=== PATIENT | female | born 1965 ===

== ENCOUNTER 2018-11-21 08:26 | Inpatient (IN) | payer OTHER ==
[2018-11-21] MEDS ORDERED: Sodium Chloride 0.9% 1,000 ML IV ONE ×2 (09:00)
[2018-11-21] MEDS ORDERED: Sodium Chloride 0.9% 1,000 ML ONE (09:12)
[2018-11-21] MEDS ORDERED: Morphine 4 MG/ML VIAL ONE (09:13)
[2018-11-21 09:43] LABS: BASO % 0.3 % (0.0-2.0); HEMOGLOBIN 13.8 g/dL (11.0-16.0); LYMPH # 1.8 K/uL (1.0-4.3); LYMPH % 15.1 % (20.0-40.0); MEAN CELL VOLUME 87.6 fL (81.0-99.0); MEAN CORPUSCULAR HGB CONC 34.3 g/dL (33.0-37.0); MEAN PLATELET VOLUME 8.9 fL (7.2-11.7); MONO # 0.3 K/uL (0.0-0.8); MONO % 2.8 % (0.0-10.0); NEUT # 9.7 K/uL (1.8-7.0); NEUT % 81.8 % (50.0-75.0); RBC 4.59 Mil/uL (3.80-5.20); RED CELL DISTRIBUTION WIDTH 13.1 % (11.5-14.5); WHITE BLOOD COUNT 11.9 K/uL (4.8-10.8)
[2018-11-21 09:54] LABS: ALB/GLOB RATIO 1.3 (1.0-2.1); ALBUMIN 4.6 g/dL (3.5-5.0); ALT/SGPT 110 U/L (9-52); AST/SGOT 158 U/L (14-36); BLOOD UREA NITROGEN 11 mg/dL (7-17); CALCIUM 9.1 mg/dl (8.6-10.4); GFR NON-AFRICAN AMERICAN > 60; LIPASE 64 U/L (23-300); SQUAMOUS EPITHIAL < 1 /hpf (0-5); URINE BACTERIA RARE (<OCC); URINE BILIRUBIN NEGATIVE (NEGATIVE); URINE BLOOD NEGATIVE (NEGATIVE); URINE CLARITY Clear (Clear); URINE COLOR Yellow (YELLOW); URINE GLUCOSE (UA) NORMAL (Normal); URINE LEUKOCYTE ESTERASE NEG Leu/uL (Negative); URINE PROTEIN NEGATIVE (NEGATIVE); URINE UROBILINOGEN NORMAL mg/dL (0.2-1.0)
--- NOTE | 2018-11-21 10:02 | C.PDOC ---
History Of Present Illness 52 year old female with a history of gastritis presents to the emergency department with complaints of abdominal pain across the anterior abdomen. Patient states that the pain feels like her gastritis but worse. Patient also reports multiple bouts of vomiting since the pain started. Patient denies fever, chills, headache, chest pain, and shortness of breath. Time Seen by Provider: 11/21/18 08:51 Chief Complaint (Nursing): Abdominal Pain History Per: Patient History/Exam Limitations: no limitations Onset/Duration Of Symptoms: Days (1) Current Symptoms Are (Timing): Still Present Location Of Pain/Discomfort: Diffuse (anterior abdomen) Quality Of Discomfort: "Pain" Associated Symptoms: Vomiting. denies: Fever, Chills, Nausea, Chest Pain, Other (headache, shortness of breath) Past Medical History Reviewed: Historical Data, Nursing Documentation, Vital Signs Vital Signs: Last Vital Signs Temp 97.5 F L 11/21/18 08:32 Pulse 72 11/21/18 08:32 Resp 22 11/21/18 08:32 BP 110/73 11/21/18 08:32 Pulse Ox 100 11/21/18 08:32 Primary Care Provider: FAMILY PROVIDER,NO - Medical History PMH: Gastritis Surgical History: No Surg Hx Family History: States: No Known Family Hx - Social History Hx Alcohol Use: No Hx Substance Use: No - Immunization History Hx Tetanus Toxoid Vaccination: No Hx Influenza Vaccination: No Hx Pneumococcal Vaccination: No Review Of Systems Except As Marked, All Systems Reviewed And Found Negative. Constitutional: Negative for: Fever, Chills, Weakness Cardiovascular: Negative for: Chest Pain Respiratory: Negative for: Shortness of Breath Gastrointestinal: Positive for: Vomiting, Abdominal Pain Neurological: Negative for: Headache Physical Exam - Physical Exam Appears: Non-toxic, In Acute Distress (writhing in pain, moaning, holding abdomen, afebrile) Skin: Normal Color, Warm, Dry Head: Atraumatic, Normacephalic Eye(s): bilateral: Normal Inspection Oral Mucosa: Moist Neck: Normal, Supple Chest: Symmetrical, No Tenderness Cardiovascular: Rhythm Regular, No Murmur Respiratory: No Rales, No Rhonchi, No Wheezing Gastrointestinal/Abdominal: Soft, No Tenderness, No Guarding, No Rebound Extremity: Normal ROM Neurological/Psych: Oriented x3, Normal Speech, Normal Cognition ED Course And Treatment - Laboratory Results Result Diagrams: 11/21/18 09:36 11/21/18 09:36 Lab Results: Total Bilirubin 0.6 mg/dL (0.2-1.3) 11/21/18 09:36 AST 158 U/L (14-36) H 11/21/18 09:36 ALT 110 U/L (9-52) H 11/21/18 09:36 Alkaline Phosphatase 111 U/L (38-126) 11/21/18 09:36 Total Protein 8.0 g/dL (6.3-8.3) 11/21/18 09:36 Albumin 4.6 g/dL (3.5-5.0) 11/21/18 09:36 Globulin 3.4 gm/dL (2.2-3.9) 11/21/18 09:36 Albumin/Globulin Ratio 1.3 (1.0-2.1) 11/21/18 09:36 Lipase 64 U/L (23-300) 11/21/18 09:36 Urine Color Yellow (YELLOW) 11/21/18 09:36 Urine Clarity Clear (Clear) 11/21/18 09:36 Urine pH 6.0 (5.0-8.0) 11/21/18 09:36 Ur Specific [place] 1.016 (1.003-1.030) 11/21/18 09:36 Urine Protein Negative mg/dL (NEGATIVE) 11/21/18 09:36 Urine Glucose (UA) Normal mg/dL (Normal) 11/21/18 09:36 Urine Ketones Negative mg/dL (NEGATIVE) 11/21/18 09:36 Urine Blood Negative (NEGATIVE) 11/21/18 09:36 Urine Nitrate Negative (NEGATIVE) 11/21/18 09:36 Urine Bilirubin Negative (NEGATIVE) 11/21/18 09:36 Urine Urobilinogen Normal mg/dL (0.2-1.0) 11/21/18 09:36 Ur Leukocyte Esterase Neg [place]/uL (Negative) 11/21/18 09:36 Urine WBC (Auto) < 1 /hpf (0-5) 11/21/18 09:36 Urine RBC (Auto) < 1 /hpf (0-3) 11/21/18 09:36 Ur Squamous Epith Cells < 1 /hpf (0-5) 11/21/18 09:36 Urine Bacteria Rare (<OCC) 11/21/18 09:36 O2 Sat by Pulse Oximetry: 100 (RA) Pulse Ox Interpretation: Normal - Other Rad XR Abdomen Flat Plate X-Ray: Interpreted by Me, Viewed By Me Interpretation: Moderate stool in the colon. Progress Note: Plan: Chemistry. CBC. Morphine. Pepcid. NaCl IV Fluids. Zofran. XR Abdomen Flat Plate. Urinalysis Medical Decision Making Medical Decision Making: After evaluation by surgical team, requested patient be sent to medical service because she has not had a medical evaluation in a long period of time, as well as other findings on CT scan. Disposition Discussed With Dr.: Alexis Giordano Counseled Patient/Family Regarding: Studies Performed, Diagnosis - Disposition Disposition: HOSPITALIZED Disposition Time: 14:59 Condition: GUARDED - Clinical Impression Clinical Impression: Abdominal pain, Acute cholecystitis - Scribe Statement The provider has reviewed the documentation as recorded by the Scribe (Román Espinozavi) Provider Attestation: All medical record entries made by the Scribe were at my direction and personally dictated by me. I have reviewed the chart and agree that the record accurately reflects my personal performance of the history, physical exam, medical decision making, and the department course for this patient. I have also personally directed, reviewed, and agree with the discharge instructions and disposition. Decision To Admit - Pt Status Changed To: Hospital Disposition Of: Inpatient - Admit Certification Admit to Inpatient:: After my assessment, the patient will require hospitalization for at least two midnights. This is because of the severity of symptoms shown, intensity of services needed, and/or the medical risk in this patient being treated as an outpatient. - InPatient: Physician Admission Certification:: acute chuy with elevated LFTs and elevated WBC - . Bed Request Type: Regular Admitting Physician: Alexis Giordano Patient Diagnosis: Abdominal pain, Acute cholecystitis
--- NOTE | 2018-11-21 13:08 | RAD ---
Abdomen two views History: Abdominal pain. COMPARISON: None available. Findings: Moderate to severe fecal retention in the colon. Distended loops of small bowel in the left lower abdomen. Impression: Moderate to severe fecal retention in the colon. Distended loops of small bowel in the left lower abdomen.
--- NOTE | 2018-11-21 14:17 | US ---
Right upper quadrant abdominal ultrasound HISTORY: Right upper quadrant abdominal pain. Comparison: None available. Technique: Real-time sonography was performed through the right upper quadrant of the abdomen. Findings: Liver: Enlarged measuring 18.1 centimeters in length. Increased echogenicity of the hepatic parenchymal cortex suggestive for fatty infiltration versus hepatic parenchymal disease. Clinical correlation. Within the liver, there is a 2.4 x 1.5 x 2.1 centimeter hypoechoic foci near the gallbladder fossa which may represent focal fatty sparing. Underlying lesion can't be excluded. Correlation with multiphasic CT or MRImay be helpful for further evaluation if clinically indicated. Gallbladder: Cholelithiasis with mild gallbladder wall thickening measuring up to 3.4 millimeters. Associated gallbladder wall edema and pericholecystic fluid. These findings may represent an acute cholecystitis. Negative sonographic Paz's sign. Common bile duct measures 5.7 millimeters, mildly prominent. Limited visualization of the pancreas. Visualized aorta and IVC are preserved. Right kidney: 10.1 x 4.2 x 4.8 centimeters. No calculi or hydronephrosis. Lower pole hypoechoic cyst measuring 1.4 x 1 x 1.1 centimeters with a suggestion of a peripheral echogenic calcification. Impression: 1. Cholelithiasis with mild gallbladder wall thickening measuring up to 3.4 millimeters as well as associated gallbladder wall edema and pericholecystic fluid. These findings may represent an acute cholecystitis. Clinical correlation. Negative sonographic Paz's sign. 2. Hepatomegaly with increased echogenicity of the hepatic parenchymal cortex suggestive for fatty infiltration versus hepatic parenchymal disease. Clinical correlation. 3. Within the liver, there is a 2.4 x 1.5 x 2.1 centimeter hypoechoic foci near the gallbladder fossa which may represent focal fatty sparing. Underlying lesion can't be excluded. Correlation with multiphasic CT or MRImay be helpful for further evaluation if clinically indicated. 4. Mild prominence of the common bile duct measuring up to 5.7 millimeters. 5. Limited visualization of the pancreas. 6. 1.4 centimeter right renal cyst with suggestion of peripheral echogenic calcification.
[2018-11-21] MEDS ORDERED: Piperacillin/Tazobact 3.375 GM in Sodium Chloride 100 ML IVPB STA (15:01)
[2018-11-21] MEDS ORDERED: Piperacillin/Tazobact 3.375 gm 100 ML IVPB ONE (15:30)
[2018-11-21] MEDS ORDERED: HYDROmorphone 0.5 mg/0.5 ml ISec IVP PRN (15:34)
--- NOTE | 2018-11-21 16:01 | CP.PCM.HP ---
History of Present Illness - History of Present Illness History of Present Illness: PGY3 H&P for Hospitalist Service Patient is a 52 year old female, with PMHx of gastritis, presents to the ED c/o abdominal pain. Reports that pain began around midnight last night while she was trying to go to sleep. Describes pain as "sharp, stabbing" in nature, located in epigastric/RUQ region. Rates pain as "10/10 in severity." Pain associated with "11 episodes" of non-bloody, non-bilious vomiting last night. Patient does not remember if it is worse with food or not. She states she has had this pain in the past, approximately the past year, but never this bad before. Each time the pain eventually resolves "on its own." Patient denies subjective fever, chills, headache, chest pain, shortness of breath, dysuria, co nstipation, diarrhea, or blood in stool. PMD: none PMH: Gastritis, Headaches (does not take medication) PSHx: denies ALL: NKDA SocialHx: denies tobacco, etoh, recreational drug use FH: sister had cholecystectomy Present on Admission - Present on Admission Any Indicators Present on Admission: No Review of Systems - Constitutional Constitutional: absent: Chills, Fever - EENT Eyes: absent: Change in Vision Nose/Mouth/Throat: absent: Neck Mass - Cardiovascular Cardiovascular: absent: Chest Pain, Dyspnea - Gastrointestinal Gastrointestinal: Abdominal Pain, Nausea, Vomiting. absent: Constipation, Diarrhea, Hematemesis - Genitourinary Genitourinary: absent: Dysuria - Musculoskeletal Musculoskeletal: absent: Numbness, Tingling - Integumentary Integumentary: absent: Swelling, Wounds - Neurological Neurological: absent: Tingling, Weakness - Psychiatric Psychiatric: absent: Anxiety, Depression - Endocrine Endocrine: absent: Change in Libido, Fatigue, Palpitations Past Patient History - Past Social History Smoking Status: Never Smoked - GASTROINTESTINAL Hx Gastritis: Yes - PSYCHIATRIC Hx Substance Use: No - SURGICAL HISTORY Hx Surgeries: No Meds Allergies/Adverse Reactions: Allergies Allergy/AdvReac Type Severity Reaction Status Date / Time No Known Allergies Allergy Unverified 11/21/18 08:36 Physical Exam - Constitutional Appears: Non-toxic, In Acute Distress (writhing on stretcher) - Head Exam Head Exam: ATRAUMATIC, NORMAL INSPECTION - Eye Exam Eye Exam: EOMI, PERRL - ENT Exam ENT Exam: Mucous Membranes Moist - Respiratory Exam Respiratory Exam: Clear to Auscultation Bilateral, NORMAL BREATHING PATTERN. absent: Rhonchi, Wheezes - Cardiovascular Exam Cardiovascular Exam: REGULAR RHYTHM, +S1, +S2 - GI/Abdominal Exam GI & Abdominal Exam: Guarding (voluntary), Normal Bowel Sounds, Soft, Tenderness (RUQ/epiogastric). absent: Distended, Rigid Additional comments: negative smith, rovsing - Extremities Exam Extremities exam: Positive for: normal inspection. Negative for: pedal edema, tenderness - Back Exam Back exam: absent: CVA tenderness (L), CVA tenderness (R) - Neurological Exam Neurological exam: Alert, Oriented x3 - Psychiatric Exam Psychiatric exam: Normal Affect, Normal Mood - Skin Skin Exam: Normal Color, Warm Results - Vital Signs Recent Vital Signs: Last Vital Signs Temp 99.9 F H 11/21/18 14:51 Pulse 74 11/21/18 12:07 Resp 18 11/21/18 12:07 BP 116/64 11/21/18 12:07 Pulse Ox 100 11/21/18 15:56 - Labs Result Diagrams: 11/21/18 09:36 11/21/18 09:36 Labs: Laboratory Results - last 24 hr 11/21/18 11/21/18 11/21/18 09:36 09:36 09:36 WBC 11.9 H RBC 4.59 Hgb 13.8 Hct 40.2 MCV 87.6 MCH 30.0 MCHC 34.3 RDW 13.1 Plt Count 284 MPV 8.9 Neut % (Auto) 81.8 H Lymph % (Auto) 15.1 L [place] % (Auto) 2.8 Eos % (Auto) 0.0 Baso % (Auto) 0.3 Neut # (Auto) 9.7 H Lymph # (Auto) 1.8 [place] # (Auto) 0.3 Eos # (Auto) 0.0 Baso # (Auto) 0.0 Sodium 134 Potassium 3.8 Chloride 98 Carbon Dioxide 21 L Anion Gap 19 BUN 11 Creatinine 0.5 L Est GFR ( Amer) > 60 Est GFR (Non-Af Amer) > 60 Random Glucose 124 H Calcium 9.1 Total Bilirubin 0.6 AST 158 H ALT 110 H Alkaline Phosphatase 111 Total Protein 8.0 Albumin 4.6 Globulin 3.4 Albumin/Globulin Ratio 1.3 Lipase 64 Urine Color Yellow Urine Clarity Clear Urine pH 6.0 Ur Specific [place] 1.016 Urine Protein Negative Urine Glucose (UA) Normal Urine Ketones Negative Urine Blood Negative Urine Nitrate Negative Urine Bilirubin Negative Urine Urobilinogen Normal Ur Leukocyte Esterase Neg Urine WBC (Auto) < 1 Urine RBC (Auto) < 1 Ur Squamous Epith Cells < 1 Urine Bacteria Rare Assessment & Plan - Assessment and Plan (Free Text) Plan: Acute Cholecystitis Admit to med/surg NPO diet Febrile 100.8, WBC elevated (11.9) w left shift; no tachypnea ABD US (11/21/18): Cholelithiasis w mild GB wall thickening measuring up to 3.4 mm, as well as GB edema and pericholecystic fluid. Negative sono smith sign. Hepatomegaly with increased echogenicity of hepatic parenchymal disease vs fatty infiltration. Within liver, 2.4 x 1.5 x 2.1 cm hypoechoic foci near GB fossa which may represent focal fatty sparing - underlying lesion cannot be excluded. Mild prominence of CBD (up to 5.7 mm). 1.4 cm of right renal cyst. Lipase 64 UA WNL Surgical consult: Dr Hemanth Giordano - NPO for cholecystectomy Zosyn 3.375gm IV Q6H (start 11/21/18; Day 1) Dilaudid 0.5mg IV Q4H for severe pain Protonix 40mg IV Daily Motrin 400mg ONCE for fever NS @ 100cc/hr f/u Lactate Focal Liver lesion vs fatty sparing Seen on CT above f/u Liver multi-phase CT Hepatic Parenchymal disease vs Fatty liver As seen on CT above Transaminitis AST / ALT 156 /110 on admission Alk phos 111 Renal Cyst Seen on US above Will need opdx f/u in 6 months to see if stable size PPX Hold chemical VTE for possible procedure Protonix 40mg IV Daily SCD Disposition: Patient narrowly misses SIRS criteria - check VBG shock for lactate; NPO for possible cholecystectomy D/w attending, Dr Kirsten Mccall PGY3
--- NOTE | 2018-11-21 16:08 | CP.PCM.CON ---
<Laron Amaro - Last Filed: 11/21/18 18:20> History of Present Illness - History of Present Illness History of Present Illness: Surgery Consult Note- Dr. Giordano Reason for Consult: Acute Cholecystitis 52F pmhx significant for Gastritis, currently does not take any medications at home presents to [facility] ER w/ multiple episodes of nausea and bilious, non-bloody vomiting over the last day. Patient states currently having sharp, stabbing, mid-epigastric to RUQ abdominal pain that woke her up late last night. Pain worse during intervals throughout the day unable to confirm any aggravating factors, including food. Patient had similar pain in the past however self limiting and resolves spontaneously. Denies associated fevers, chills, chest pain, shortness of breath. Last time patient saw a doctor was 4 years ago. Denies having colonoscopy 12 pt ROS conducted, negative otherwise stated above PMH: Gastritis, Headaches (does not take medication) PSH: denies ALL: NKDA SocialHx: denies tobacco, etoh, recreational drug use FH: sister had cholecystectomy Past Patient History - Past Social History Smoking Status: Never Smoked - GASTROINTESTINAL Hx Gastritis: Yes - PSYCHIATRIC Hx Substance Use: No - SURGICAL HISTORY Hx Surgeries: No Meds Allergies/Adverse Reactions: Allergies Allergy/AdvReac Type Severity Reaction Status Date / Time No Known Allergies Allergy Unverified 11/21/18 08:36 - Medications Medications: Current Medications Hydromorphone HCl (Dilaudid) 0.5 mg IVP Q4H PRN PRN Reason: Pain, severe (8-10) Sodium Chloride (Sodium Chloride 0.9%) 1,000 mls @ 100 mls/hr IV .Q10H ONE Stop: 11/21/18 18:59 Last Admin: 11/21/18 09:10 Dose: 100 mls/hr Piperacillin Sod/Tazobactam (Sod 3.375 gm/ Sodium Chloride) 100 mls @ 200 mls/hr IVPB Q6H REN; Protocol Ondansetron HCl (Zofran Inj) 4 mg IVP Q4H PRN PRN Reason: Nausea/Vomiting Pantoprazole Sodium (Protonix Inj) 40 mg IVP DAILY REN Physical Exam - Constitutional Appears: Non-toxic, No Acute Distress, Older Than Stated Age - Head Exam Head Exam: ATRAUMATIC - Eye Exam Eye Exam: EOMI. absent: Scleral icterus - ENT Exam ENT Exam: Mucous Membranes Moist - Respiratory Exam Respiratory Exam: NORMAL BREATHING PATTERN. absent: Accessory Muscle Use, Respiratory Distress - Cardiovascular Exam Cardiovascular Exam: REGULAR RHYTHM. absent: Bradycardia, Tachycardia - GI/Abdominal Exam GI & Abdominal Exam: Guarding (Voluntary guarding RUQ), Soft, Tenderness (Tender to palpation RUQ. Negative Paz's sign). absent: Distended, Firm, Hernia, Rebound, Rigid - Extremities Exam Extremities exam: Negative for: calf tenderness - Neurological Exam Neurological exam: Alert, Oriented x3 - Psychiatric Exam Psychiatric exam: Normal Affect - Skin Skin Exam: Intact, Warm Results - Vital Signs Recent Vital Signs: Last Vital Signs Temp 99 F 11/21/18 16:03 Pulse 79 11/21/18 16:03 Resp 18 11/21/18 16:03 BP 123/75 11/21/18 16:03 Pulse Ox 95 11/21/18 16:03 - Labs Result Diagrams: 11/21/18 09:36 11/21/18 09:36 Labs: Laboratory Results - last 24 hr 11/21/18 11/21/18 11/21/18 09:36 09:36 09:36 WBC 11.9 H RBC 4.59 Hgb 13.8 Hct 40.2 MCV 87.6 MCH 30.0 MCHC 34.3 RDW 13.1 Plt Count 284 MPV 8.9 Neut % (Auto) 81.8 H Lymph % (Auto) 15.1 L [place] % (Auto) 2.8 Eos % (Auto) 0.0 Baso % (Auto) 0.3 Neut # (Auto) 9.7 H Lymph # (Auto) 1.8 [place] # (Auto) 0.3 Eos # (Auto) 0.0 Baso # (Auto) 0.0 Sodium 134 Potassium 3.8 Chloride 98 Carbon Dioxide 21 L Anion Gap 19 BUN 11 Creatinine 0.5 L Est GFR ( Amer) > 60 Est GFR (Non-Af Amer) > 60 Random Glucose 124 H Calcium 9.1 Total Bilirubin 0.6 AST 158 H ALT 110 H Alkaline Phosphatase 111 Total Protein 8.0 Albumin 4.6 Globulin 3.4 Albumin/Globulin Ratio 1.3 Lipase 64 Urine Color Yellow Urine Clarity Clear Urine pH 6.0 Ur Specific [place] 1.016 Urine Protein Negative Urine Glucose (UA) Normal Urine Ketones Negative Urine Blood Negative Urine Nitrate Negative Urine Bilirubin Negative Urine Urobilinogen Normal Ur Leukocyte Esterase Neg Urine WBC (Auto) < 1 Urine RBC (Auto) < 1 Ur Squamous Epith Cells < 1 Urine Bacteria Rare Assessment & Plan - Assessment and Plan (Free Text) Assessment: 52F w/ Acute Cholecystitis, and liver mass found on Ultrasound Plan: - Pain control w/ IV pain meds, limiting narcotic use - IVF/Abx - NPO except for meds - Obtain [address] scan of the liver - pending results; plan for Cholecystectomy - repeat labs in AM - serial abd exams - explained in detail biliary system and parts for cholecystectomy - discussed w/ Dr. Giordano Surgical Attending [facility] PGY2 <Alexis Giordano - Last Filed: 11/22/18 08:22> Meds - Medications Medications: Current Medications Hydromorphone HCl (Dilaudid) 0.5 mg IVP Q4H PRN PRN Reason: Pain, severe (8-10) Last Admin: 11/21/18 18:15 Dose: 0.5 mg Piperacillin Sod/Tazobactam (Sod 3.375 gm/ Sodium Chloride) 100 mls @ 200 mls/hr IVPB Q6H REN; Protocol Last Admin: 11/22/18 08:13 Dose: Not Given Metronidazole (Flagyl) 500 mg in 100 mls @ 100 mls/hr IVPB Q8H REN; Protocol Last Admin: 11/22/18 04:59 Dose: 100 mls/hr Ondansetron HCl (Zofran Inj) 4 mg IVP Q4H PRN PRN Reason: Nausea/Vomiting Pantoprazole Sodium (Protonix Inj) 40 mg IVP DAILY [facility] Pneumococcal Polyvalent Vaccine (Pneumovax 23 Vaccine) 0.5 ml IM .ONCE ONE Stop: 11/24/18 10:01 Results - Vital Signs Recent Vital Signs: Last Vital Signs Temp 97 F L 11/22/18 00:06 Pulse 76 11/22/18 00:06 Resp 20 11/22/18 00:06 BP 104/66 11/22/18 00:06 Pulse Ox 98 11/22/18 00:06 - Labs Result Diagrams: 11/22/18 05:09 11/22/18 05:09 Labs: Laboratory Results - last 24 hr 11/21/18 11/21/1819 09:36 09:36 09:36 WBC 11.9 H RBC 4.59 Hgb 13.8 Hct 40.2 MCV 87.6 MCH 30.0 MCHC 34.3 RDW 13.1 Plt Count 284 MPV 8.9 Neut % (Auto) 81.8 H Lymph % (Auto) 15.1 L [place] % (Auto) 2.8 Eos % (Auto) 0.0 Baso % (Auto) 0.3 Neut # (Auto) 9.7 H Lymph # (Auto) 1.8 [place] # (Auto) 0.3 Eos # (Auto) 0.0 Baso # (Auto) 0.0 PT INR APTT pO2 VBG pH VBG pCO2 VBG HCO3 VBG Total CO2 VBG O2 Sat (Calc) VBG Base Excess VBG Potassium Glucose Lactate Sodium 134 Potassium 3.8 Chloride 98 Carbon Dioxide 21 L Anion Gap 19 BUN 11 Creatinine 0.5 L Est GFR ( Amer) > 60 Est GFR (Non-Af Amer) > 60 Random Glucose 124 H Lactic Acid Calcium 9.1 Phosphorus Magnesium Total Bilirubin 0.6 AST 158 H ALT 110 H Alkaline Phosphatase 111 Total Protein 8.0 Albumin 4.6 Globulin 3.4 Albumin/Globulin Ratio 1.3 Lipase 64 Venous Blood Potassium Urine Color Yellow Urine Clarity Clear Urine pH 6.0 Ur Specific [place] 1.016 Urine Protein Negative Urine Glucose (UA) Normal Urine Ketones Negative Urine Blood Negative Urine Nitrate Negative Urine Bilirubin Negative Urine Urobilinogen Normal Ur Leukocyte Esterase Neg Urine WBC (Auto) < 1 Urine RBC (Auto) < 1 Ur Squamous Epith Cells < 1 Urine Bacteria Rare Blood Type Antibody Screen 11/21/18 11/21/18 11/22/18 18:24 22:32 05:09 WBC 15.6 H RBC 4.34 Hgb 12.8 Hct 38.4 MCV 88.5 MCH 29.4 MCHC 33.2 RDW 13.7 Plt Count 258 MPV 8.4 Neut % (Auto) 83.0 H Lymph % (Auto) 10.6 L [place] % (Auto) 6.2 Eos % (Auto) 0.0 Baso % (Auto) 0.2 Neut # (Auto) 12.9 H Lymph # (Auto) 1.6 [place] # (Auto) 1.0 H Eos # (Auto) 0.0 Baso # (Auto) 0.0 PT INR APTT pO2 30 VBG pH 7.36 VBG pCO2 46 VBG HCO3 23.8 VBG Total CO2 27.4 VBG O2 Sat (Calc) 61.5 VBG Base Excess 0.1 VBG Potassium 3.9 Glucose 106 H Lactate 3.5 H Sodium 135.0 Potassium Chloride 100.0 Carbon Dioxide Anion Gap BUN Creatinine Est GFR ( Amer) Est GFR (Non-Af Amer) Random Glucose Lactic Acid 1.1 Calcium Phosphorus Magnesium Total Bilirubin AST ALT Alkaline Phosphatase Total Protein Albumin Globulin Albumin/Globulin Ratio Lipase Venous Blood Potassium 3.9 Urine Color Urine Clarity Urine pH Ur Specific [place] Urine Protein Urine Glucose (UA) Urine Ketones Urine Blood Urine Nitrate Urine Bilirubin Urine Urobilinogen Ur Leukocyte Esterase Urine WBC (Auto) Urine RBC (Auto) Ur Squamous Epith Cells Urine Bacteria Blood Type Antibody Screen 11/22/18 11/22/18 11/22/18 05:09 05:09 05:09 WBC RBC Hgb Hct MCV MCH MCHC RDW Plt Count MPV Neut % (Auto) Lymph % (Auto) [place] % (Auto) Eos % (Auto) Baso % (Auto) Neut # (Auto) Lymph # (Auto) [place] # (Auto) Eos # (Auto) Baso # (Auto) PT 14.9 H INR 1.4 APTT 32.6 pO2 VBG pH VBG pCO2 VBG HCO3 VBG Total CO2 VBG O2 Sat (Calc) VBG Base Excess VBG Potassium Glucose Lactate Sodium 135 Potassium 3.7 Chloride 103 Carbon Dioxide 25 Anion Gap 11 BUN 10 Creatinine 0.6 L Est GFR ( Amer) > 60 Est GFR (Non-Af Amer) > 60 Random Glucose 126 H Lactic Acid Calcium 8.3 L Phosphorus 3.1 Magnesium 1.8 Total Bilirubin 1.1 AST 34 ALT 63 H D Alkaline Phosphatase 89 Total Protein 6.6 Albumin 3.7 Globulin 2.9 Albumin/Globulin Ratio 1.3 Lipase Venous Blood Potassium Urine Color Urine Clarity Urine pH Ur Specific [place] Urine Protein Urine Glucose (UA) Urine Ketones Urine Blood Urine Nitrate Urine Bilirubin Urine Urobilinogen Ur Leukocyte Esterase Urine WBC (Auto) Urine RBC (Auto) Ur Squamous Epith Cells Urine Bacteria Blood Type O POSITIVE Antibody Screen Negative Assessment & Plan - Assessment and Plan (Free Text) Plan: Patient seen and examined at bedside with residetn staff. Imaging and reports reviewed. Agree with above assessment and plan. 52 female acute cholecystitis confirmed on US and CT imaging. Plan for laparoscopic cholecystectomy. Risks and benefits discussed with patient using product trainer services, including bleeding, infection, bile leak and bile duct injury. All questions answered. Consent signed at bedside.
[2018-11-21] MEDS ORDERED: Iodixanol 320 MG/ML 100 ML BOTTLE IV ONE (16:30)
--- NOTE | 2018-11-21 16:39 | RAD ---
Chest x-ray two views HISTORY: Preoperative evaluation. Comparison: None available. Findings: Mild venous congestion. Right paratracheal prominence may represent prominent vasculature. Heart size within normal limits. Degenerative changes in the spine. Impression: Mild venous congestion.
[2018-11-21 18:30] LABS: VENOUS BLOOD GAS BASE EXCESS 0.1 mmol/L (0.0-2.0); VENOUS BLOOD GAS PCO2 46 mmHg (40-60); VENOUS BLOOD GAS PO2 30 mm/Hg (30-55); VENOUS BLOOD PH 7.36 (7.32-7.43)
[2018-11-21] MEDS: metroNIDAZOLE IV 500 mg/100 ml 500 MG/100 ML BAG IVPB SCH (19:47)
[2018-11-21] MEDS: Piperacillin/Tazobact 3.375 GM in Sodium Chloride 100 ML IVPB SCH (21:47)
[2018-11-22] MEDS: Piperacillin/Tazobact 3.375 GM in Sodium Chloride 100 ML IVPB SCH ×2 (03:38→08:13)
[2018-11-22] MEDS: metroNIDAZOLE IV 500 mg/100 ml 500 MG/100 ML BAG IVPB SCH ×4 (04:59→20:07)
[2018-11-22 05:13] LABS: BASO % 0.2 % (0.0-2.0); HEMOGLOBIN 12.8 g/dL (11.0-16.0); LYMPH # 1.6 K/uL (1.0-4.3); LYMPH % 10.6 % (20.0-40.0); MEAN CELL VOLUME 88.5 fL (81.0-99.0); MEAN CORPUSCULAR HEMOGLOBIN 29.4 pg (27.0-31.0); MEAN CORPUSCULAR HGB CONC 33.2 g/dL (33.0-37.0); MEAN PLATELET VOLUME 8.4 fL (7.2-11.7); MONO % 6.2 % (0.0-10.0); NEUT # 12.9 K/uL (1.8-7.0); RBC 4.34 Mil/uL (3.80-5.20); RED CELL DISTRIBUTION WIDTH 13.7 % (11.5-14.5); WHITE BLOOD COUNT 15.6 K/uL (4.8-10.8)
[2018-11-22 05:21] LABS: INR 1.4; PARTIAL THROMBOPLASTIN TIME 32.6 SECONDS (21-34); PROTHROMBIN TIME 14.9 SECONDS (9.7-12.2)
[2018-11-22 05:27] LABS: ALB/GLOB RATIO 1.3 (1.0-2.1); ALBUMIN 3.7 g/dL (3.5-5.0); ALT/SGPT 63 U/L (9-52); AST/SGOT 34 U/L (14-36); BLOOD UREA NITROGEN 10 mg/dL (7-17); CALCIUM 8.3 mg/dl (8.6-10.4); GFR NON-AFRICAN AMERICAN > 60
--- NOTE | 2018-11-22 08:07 | CP.PCM.PN ---
Subjective - Date & Time of Evaluation Date of Evaluation: 11/22/18 Time of Evaluation: 08:07 - Subjective Subjective: Progress Note for Dr. Daugherty Patient seen and examined at bedside. She states she is comfortable after her laparoscopic cholecystectomy. She denies fevers, chills, headache, lightheadedness, chest pain, shortness of breath, nausea, vomiting, urinary frequency or burning, leg pain or swelling. She states she takes no medications at home regularly. She states she is eager to eat, states she has not passed any flatus yet. Objective - Vital Signs/Intake and Output Vital Signs (last 24 hours): Temp Pulse Resp BP Pulse Ox 97 F L 76 20 104/66 98 11/22/18 00:06 11/22/18 00:06 11/22/18 00:06 11/22/18 00:06 11/22/18 00:06 Intake and Output: 11/22/18 11/22/18 06:59 18:59 Intake Total 930 Balance 930 - Medications Medications: Current Medications Hydromorphone HCl (Dilaudid) 0.5 mg IVP Q4H PRN PRN Reason: Pain, severe (8-10) Last Admin: 11/21/18 18:15 Dose: 0.5 mg Piperacillin Sod/Tazobactam (Sod 3.375 gm/ Sodium Chloride) 100 mls @ 200 mls/hr IVPB Q6H REN; Protocol Last Admin: 11/22/18 03:38 Dose: 200 mls/hr Metronidazole (Flagyl) 500 mg in 100 mls @ 100 mls/hr IVPB Q8H REN; Protocol Last Admin: 11/22/18 04:59 Dose: 100 mls/hr Ondansetron HCl (Zofran Inj) 4 mg IVP Q4H PRN PRN Reason: Nausea/Vomiting Pantoprazole Sodium (Protonix Inj) 40 mg IVP DAILY REN Pneumococcal Polyvalent Vaccine (Pneumovax 23 Vaccine) 0.5 ml IM .ONCE ONE Stop: 11/24/18 10:01 - Labs Labs: 11/22/18 05:09 11/22/18 05:09 PT 14.9 SECONDS (9.7-12.2) H 11/22/18 05:09 INR 1.4 11/22/18 05:09 APTT 32.6 SECONDS (21-34) 11/22/18 05:09 - Constitutional Appears: Well, Non-toxic, No Acute Distress - Head Exam Head Exam: ATRAUMATIC, NORMOCEPHALIC - Eye Exam Eye Exam: EOMI, PERRL - ENT Exam ENT Exam: Mucous Membranes Moist - Neck Exam Neck Exam: Full ROM - Respiratory Exam Respiratory Exam: Clear to Ausculation Bilateral, NORMAL BREATHING PATTERN. absent: Rales, Rhonchi, Wheezes, Respiratory Distress, Stridor - Cardiovascular Exam Cardiovascular Exam: REGULAR RHYTHM, +S1, +S2. absent: Gallop, Rubs, Murmur - GI/Abdominal Exam GI & Abdominal Exam: Soft, Hypoactive Bowel Sounds. absent: Guarding, Rigid, Tenderness Additional comments: 4 incision sites on abdomen covered with dermabond - Extremities Exam Extremities Exam: absent: Calf Tenderness, Pedal Edema - Back Exam Back Exam: absent: CVA tenderness (L), CVA tenderness (R) - Neurological Exam Neurological Exam: Alert, Awake, Oriented x3 - Psychiatric Exam Psychiatric exam: Normal Affect, Normal Mood - Skin Skin Exam: Dry, Intact, Warm Assessment and Plan - Assessment and Plan (Free Text) Assessment: 52 year old female who presents for abdominal pain, found to have cholecystitis, status post laparoscopic cholecystectomy day 0 Plan: Cholecystitis Status post lap cholecystectomy Patient underwent surgical intervention (lap cholecystectomy) today on 11/22/18 ABD US (11/21/18): Cholelithiasis w mild GB wall thickening measuring up to 3.4 mm, as well as GB edema and pericholecystic fluid. Negative sono smith sign. Hepatomegaly with increased echogenicity of hepatic parenchymal disease vs fatty infiltration. Within liver, 2.4 x 1.5 x 2.1 cm hypoechoic foci near GB fossa which may represent focal fatty sparing - underlying lesion cannot be excluded. Mild prominence of CBD (up to 5.7 mm). 1.4 cm of right renal cyst. Lipase 64 UA WNL White count 15.6, up from 11.9 yesterday Lactate VBG elevated 3.5, repeat serum lactate 1.1 Zosyn 3.375gm IV Q6H (start 11/21/18) Flagyl 500mg Q8 (start 11/21/18) Dilaudid 0.5mg IV Q4H for severe pain Protonix 40mg IV Daily LR @ 150cc/hr IV Zofran 4mg Q4 PRN Percocet 1 tab Q4 PRN Motrin 600mg Q6 PRN Focal Liver lesion vs fatty sparing Liver multi-phase CT 11/21/18 Hepatic steatosis with areas of focal fatty sparing. No discrete hepatic mass. Distended gallbladder with wall thickening/edema as seen on ultrasound. Left adnexal 6.9 cm cystic structure. Pelvic US can be obtained for further characterization as clinically warranted. Hepatic Parenchymal disease vs Fatty liver Liver CT Liver multi-phase CT 11/21/18 Hepatic steatosis with areas of focal fatty sparing. No discrete hepatic mass. Distended gallbladder with wall thickening/edema as seen on ultrasound. Left adnexal 6.9 cm cystic structure. Pelvic US can be obtained for further characterization as clinically warranted. Transaminitis, improving AST / ALT 156 /110 on admission - AST 34/ALT 63 today Alk phos 111 on admission, 89 today Renal Cyst Seen on US above Will need opdx f/u in 6 months to see if stable size Adnexal/pelvic cyst Follow up as outpatient PPX Heparin 5000 units SC Q8 Protonix 40mg IV Daily SCDs Case discussed with Dr. Willow De Los Santos, PGY1
[2018-11-22] MEDS ORDERED: Bupivacaine HCl 0.25% PF (10 ml) Inj ONE ×2 (08:23→08:24)
[2018-11-22] MEDS ORDERED: Lidocaine/Epinephrine 1% 1:100000 10 ML IJ ONE (08:23)
[2018-11-22] MEDS ORDERED: Propofol 10 mg/ml Inj (20 ML) ONE (08:31)
[2018-11-22] MEDS ORDERED: Midazolam 2 MG/2 ML VIAL ONE (08:31)
[2018-11-22] MEDS ORDERED: Piperacillin/Tazobact 3.375 gm 100 ML IVPB ONE (08:47)
[2018-11-22] MEDS ORDERED: Rocuronium 10 mg/ml (5 ml) ONE (09:06)
[2018-11-22] MEDS ORDERED: Phenylephrine 10 mg/ml Inj ONE (09:21)
[2018-11-22] MEDS ORDERED: Succinylcholine Chloride 20 mg/ml Syr (5 ml) IV ONE (09:22)
[2018-11-22] MEDS ORDERED: Esmolol 100 mg/10ml Inj IV ONE (09:27)
[2018-11-22] MEDS ORDERED: Neostigmine 1:1000 (1 mg/ml) Inj ONE (10:01)
[2018-11-22] MEDS ORDERED: HYDROmorphone 0.5 mg/0.5 ml ISec IVP PRN (10:38)
--- NOTE | 2018-11-22 10:40 | PCM.SURG1 ---
Surgeon's Initial Post Op Note - Surgeon's Notes Surgeon: Dr. Giordano Precision Jig Grinder: Dr. Rodriguez Type of Anesthesia: General Endo Anesthesia Administered By: Dr. Crum Pre-Operative Diagnosis: Acute cholecystitis Operative Findings: same Post-Operative Diagnosis: same Operation Performed: Laparoscopic Cholecystectomy Specimen/Specimens Removed: gallbladder Estimated Blood Loss: EBL {In ML}: 50 Blood Products Given: N/A Drains Used: No Drains Post-Op Condition: Good Date of Surgery/Procedure: 11/22/18 Time of Surgery/Procedure: 10:39
--- NOTE | 2018-11-22 10:47 | CT ---
Date of service: 11/21/2018 PROCEDURE: CT Abdomen and Pelvis with and without intravenous contrast HISTORY: Liver Lesion COMPARISON: Correlations made to abdominal ultrasound dated 11/21/2018 TECHNIQUE: Axial images of the abdomen were obtained in the pre contrast, portal venous and delayed phases of enhancement. Coronal and sagittal reformats were generated. Contrast dose: 100 mL Visipaque 320 Radiation dose: Total exam DLP = 3162.94 mGy-cm. This CT exam was performed using one or more of the following dose reduction techniques: Automated exposure control, adjustment of the mA and/or kV according to patient size, and/or use of iterative reconstruction technique. FINDINGS: LOWER THORAX: Unremarkable. LIVER: Diffuse hepatic steatosis with areas of focal fatty sparing. No gross lesion or ductal dilatation. GALLBLADDER AND BILE DUCTS: Distended gallbladder with mild wall thickening/edema as seen on ultrasound. PANCREAS: Unremarkable. No gross lesion or ductal dilatation. SPLEEN: Unremarkable. ADRENALS: Unremarkable. No mass. KIDNEYS AND URETERS: Unremarkable. No hydronephrosis. No solid mass. VASCULATURE: Unremarkable. No aortic aneurysm. No aortic atherosclerotic calcification or mural plaque present. BOWEL: Unremarkable. No obstruction. No gross mural thickening. APPENDIX: No findings to suggest acute appendicitis. PERITONEUM: Unremarkable. No free fluid. No free air. LYMPH NODES: Unremarkable. No enlarged lymph nodes. BLADDER: Unremarkable. REPRODUCTIVE: Left adnexal 6.9 x 5.9 cm cystic structure. Probable small calcified uterine fibroids. BONES: No acute fracture. OTHER FINDINGS: None. IMPRESSION: Hepatic steatosis with areas of focal fatty sparing. No discrete hepatic mass. Distended gallbladder with wall thickening/edema as seen on ultrasound. Left adnexal 6.9 cm cystic structure. Pelvic ultrasound can be obtained for further characterization as clinically warranted.
[2018-11-22] MEDS ORDERED: Oxycodone/Acetaminophen 5/325 mg Tab PO PRN (11:30)
[2018-11-22] MEDS ORDERED: Lactated Ringer's 1,000 ML IV ONE (11:56)
[2018-11-22] MEDS: Lactated Ringer's 1,000 ML IV SCH ×3 (12:31→21:36)
--- NOTE | 2018-11-22 13:22 | PCM.OP ---
Operative Report - Operative Report Date of Surgery/Procedure: 11/22/18 Time of Surgery/Procedure: 09:00 Surgeon: Alexis Giordano MD Stone Hand: Alanis Rodriguez DO (PGY4 resident) Anesthesia/Sedation: See main Pre-Operative Diagnosis: See main Post-Operative Diagnosis: See main Indication for Surgery: See main Operative Findings: See main Procedure/Operation Description: ANESTHESIA: General endotracheal; 1% lidocaine + 0.25% Marcaine mix local anesthesia PRE-OPERATIVE DIAGNOSIS: Acute calculus cholecystitis Morbid Obesity BMI 35 POSTOPERATIVE DIAGNOSIS: Acute calculus cholecystitis Morbid Obesity BMI 35 Fatty liver Indications: This is a 52 year-old female presented to ED for 2 days on going RUQ pain due to symptomatic cholelithiasis and acute cholecystitis, with CT evidence of large dilated, fluid filled gallbladder and wall thickening and inflammation; RUQ US showed gallstones. Details of HPI in clinical chart. Taken to the operating room for laparoscopic cholecystectomy. Patient understands the risks and benefits of the procedure as documented in the clinic chart but specifically risk of bleeding, infection, cystic duct leak and common bile duct injury, need for open surgery and has consented to the procedure using farmworker fruit services at bedside. OPERATIVE FINDINGS: Significant inflammation in right upper quadrant with adhesions gallbladder to omentum; Dilated and tense, Fluid filled gallbladder with multiple stones. Clips in place on cystic artery at end of case as well as endoloop suture ligation intact of cystic duct without leakage or bleeding. PROCEDURES PERFORMED: 1) Laparoscopic Cholecystectomy DESCRIPTION OF PROCEDURE: The patient was given a preoperative dose of Zosyn 20 minutes before the incision. SCD boots were placed for DVT prophylaxis. The patient had an orogastric tube placed in order to empty the stomach after the induction of general anesthesia. Upper and lower body warmer placed to maintain normothermia. No lane catheter inserted as patient voided immediately prior to being brought back to OR. Secure straps placed above and below the knees and footboard placed. Arms placed on arm boards out at 80 degress. All bony prominences were padded. A timeout was performed prior to incision. The abdomen was prepped and draped in sterile fashion. All skin incisions were made using an 11 blade scalpel after being pre-anesthetized with local anesthesia. Abdominal entry was gained using an 11mm optically viewing trocar with A 10mm 0-degree laparoscope placed in the supraumbilical region 2 cm above midline given morbid obesity. All layers of the abdominal wall were seen and peritoneal entry directly visualized. The abdomen was then insufflated with C02 pneumoperitoneum to 15mmhg. 0-degree laparoscope was then inserted and the abdomen was generally inspected. There were no signs of injury from initial entry and there was not found to be any additional signs of pathology. In the right upper quadrant, two 5-mm ports were placed after the under direct vision and in the subxiphoid midline, an 11-mm radially dilating port was placed in the similar fashion. Patient placd in reverse trendelenberg with right side up. There was significant inflammation in the right upper abdomen and a large dilated gallbladder fundus was identified beneath the liver edge. The fundus of the gallbladder was then retracted to the right upper quadrant and the neck of the gallbladder was visualized. There were omental adhesions to the gallbladder that were taken down with a cominbation of sharp dissection and hook cautery. The peritoneal attachments from the lateral portion of the gallbladder/cystic duct junction were gently dissected and divided to open up the [place]. The [place] was then dissected up onto the liver bed posterior to the gallbladder in order to ensure that this was the cystic duct and not tenting of the common bile duct. The peritoneal attachments on the medial portion of the gallbladder going up to the side of the liver were taken and di stal third of gallbladder dissected off the cystic plate. The cystic duct was significantly dilated. The critical view was obtained and photodocumented. The cystic artery and cystic duct were the sequentially doubly clipped and ligated and the clips were inspected and intact. Once this was completed, the gallbladder was dissected free from the liver bed using electrocautery and placed this in an endo catch bag. The gallbladder was entered during dissection and stones expressed. THese were all retrived and placed into the endocath bag with specimen, which was then withrdrawn throught supraumbilical port site. THe liver bed was inspected and bleeding from surface cauterized and hemostasis acheived with addition of surgicel hemostatic agent. The abdomen was reinspected and generally irrigated and drained. The ports were then removed from the abdomen and the abdomen was desufflated with air. The supraumbilical port site was closed with [id number]- Vicryl suture x1, skin incisions closed with 4-0 Vicryl sutures, and finally dermabond applied to skin. The patient tolerated the procedure well and was extubated and stable in recovery after the procedure. I was present throughout the entirety of the procedure. Sponge, needle and instrument counts were correct. Estimated Blood Loss: 50mL Complications: none Specimen: Gallbladder Discharge & Condition: See main
--- NOTE | 2018-11-22 14:53 | RAD ---
Date of service: 11/22/2018 HISTORY: on fluids for sepsis COMPARISON: Chest radiograph dated 11/21/2018. TECHNIQUE: 1 view obtained. FINDINGS: LUNGS: Patchy bibasilar atelectatic changes. PLEURA: No significant pleural effusion identified, no pneumothorax apparent. CARDIOVASCULAR: Aortic atherosclerotic calcifications. Cardiomediastinal silhouette stably enlarged. OSSEOUS STRUCTURES: Unchanged. VISUALIZED UPPER ABDOMEN: Normal. OTHER FINDINGS: None. IMPRESSION: No active disease.
--- NOTE | 2018-11-22 14:56 | CARD ---
APPROVED REPORT Date of service: 11/21/2018 EKG Measurement Heart [id number] <Conclusion> Normal sinus rhythm Normal ECG
[2018-11-22] MEDS: Piperacill/Tazo 3.375gm in Dex 3.375 GM/50 ML BAG IVPB SCH ×2 (15:01→21:23)
[2018-11-22 15:56] VITALS: RESP 20
[2018-11-23] MEDS: Lactated Ringer's 1,000 ML IV SCH ×4 (00:51→13:17)
[2018-11-23] MEDS: Piperacill/Tazo 3.375gm in Dex 3.375 GM/50 ML BAG IVPB SCH (03:06)
[2018-11-23] MEDS: metroNIDAZOLE IV 500 mg/100 ml 500 MG/100 ML BAG IVPB SCH (03:14)
--- NOTE | 2018-11-23 07:41 | CP.PCM.PN ---
Objective - Vital Signs/Intake and Output Vital Signs (last 24 hours): Temp Pulse Resp BP Pulse Ox 99.3 F 87 20 99/58 L 95 11/23/18 00:00 11/23/18 00:00 11/23/18 00:00 11/23/18 00:00 11/23/18 00:00 Intake and Output: 11/23/18 11/23/18 06:59 18:59 Intake Total 1325 Balance 1325 - Medications Medications: Current Medications Heparin Sodium (Porcine) (Heparin) 5,000 units SC Q8 [facility] Last Admin: 11/23/18 05:16 Dose: 5,000 units Hydromorphone HCl (Dilaudid) 0.5 mg IVP Q15M PRN PRN Reason: Pain, severe (8-10) Lactated Ringer's (Lactated Ringer's) 1,000 mls @ 150 mls/hr IV .Q6H40M [facility] Last Admin: 11/23/18 05:16 Dose: 150 mls/hr Ibuprofen (Motrin Tab) 600 mg PO Q6H PRN PRN Reason: Pain, moderate (4-7) Last Admin: 11/22/18 20:08 Dose: 600 mg Ondansetron HCl (Zofran Inj) 4 mg IVP Q4H PRN PRN Reason: Nausea/Vomiting Oxycodone/Acetaminophen (Percocet 5/325 Mg Tab) 1 tab PO Q4H PRN PRN Reason: Pain, severe (8-10) Stop: 11/25/18 11:31 Pantoprazole Sodium (Protonix Inj) 40 mg IVP DAILY [facility] Last Admin: 11/22/18 09:53 Dose: Not Given Pneumococcal Polyvalent Vaccine (Pneumovax 23 Vaccine) 0.5 ml IM .ONCE ONE Stop: 11/24/18 10:01 - Labs Labs: 11/22/18 05:09 11/22/18 05:09 PT 14.9 SECONDS (9.7-12.2) H 11/22/18 05:09 INR 1.4 11/22/18 05:09 APTT 32.6 SECONDS (21-34) 11/22/18 05:09
[2018-11-23 08:16] VITALS: BP 101/62; PULSE 74; TEMP 98.7; O2SAT 96
[2018-11-23 08:16] LABS: BASO # 0.1 K/uL (0.0-0.2); BASO % 0.4 % (0.0-2.0); EOS % 0.1 % (0.0-4.0); HEMOGLOBIN 11.6 g/dL (11.0-16.0); LYMPH # 1.8 K/uL (1.0-4.3); LYMPH % 14.2 % (20.0-40.0); MEAN CELL VOLUME 88.1 fL (81.0-99.0); MEAN CORPUSCULAR HEMOGLOBIN 30.3 pg (27.0-31.0); MEAN CORPUSCULAR HGB CONC 34.4 g/dL (33.0-37.0); MEAN PLATELET VOLUME 8.5 fL (7.2-11.7); MONO # 0.5 K/uL (0.0-0.8); MONO % 4.2 % (0.0-10.0); NEUT # 10.2 K/uL (1.8-7.0); NEUT % 81.1 % (50.0-75.0); NRBC % 0.1 % (0.0-2.0); RBC 3.84 Mil/uL (3.80-5.20); RED CELL DISTRIBUTION WIDTH 13.8 % (11.5-14.5); WHITE BLOOD COUNT 12.6 K/uL (4.8-10.8)
[2018-11-23 08:42] LABS: CK-MB 0.32 ng/mL (0.0-3.38)
[2018-11-23 08:47] LABS: ALB/GLOB RATIO 1.2 (1.0-2.1); ALBUMIN 3.2 g/dL (3.5-5.0); ALT/SGPT 57 U/L (9-52); AST/SGOT 35 U/L (14-36); BLOOD UREA NITROGEN 9 mg/dL (7-17); CALCIUM 8.2 mg/dl (8.6-10.4); GFR NON-AFRICAN AMERICAN > 60
--- NOTE | 2018-11-23 10:37 | CP.PCM.PN ---
<Sammi Stein - Last Filed: 11/23/18 10:34> Subjective - Date & Time of Evaluation Date of Evaluation: 11/23/18 Time of Evaluation: 06:45 - Subjective Subjective: General Surgery Dr. Giordano Pt seen and examined @bedside. No acute events overnight. Pt had no complaints this AM. tolerating diet. Objective - Vital Signs/Intake and Output Vital Signs (last 24 hours): Temp Pulse Resp BP Pulse Ox 98.7 F 74 20 101/62 96 11/23/18 08:14 11/23/18 08:14 11/23/18 08:14 11/23/18 08:14 11/23/18 08:14 Intake and Output: 11/23/18 11/23/18 06:59 18:59 Intake Total 1325 1200 Balance 1325 1200 - Medications Medications: Current Medications Heparin Sodium (Porcine) (Heparin) 5,000 units SC Q8 [facility] Last Admin: 11/23/18 05:16 Dose: 5,000 units Lactated Ringer's (Lactated Ringer's) 1,000 mls @ 150 mls/hr IV .Q6H40M [facility] Last Admin: 11/23/18 08:05 Dose: Not Given Ibuprofen (Motrin Tab) 600 mg PO Q6H PRN PRN Reason: Pain, moderate (4-7) Last Admin: 11/22/18 20:08 Dose: 600 mg Ondansetron HCl (Zofran Inj) 4 mg IVP Q4H PRN PRN Reason: Nausea/Vomiting Oxycodone/Acetaminophen (Percocet 5/325 Mg Tab) 1 tab PO Q4H PRN PRN Reason: Pain, severe (8-10) Stop: 11/25/18 11:31 Pantoprazole Sodium (Protonix Inj) 40 mg IVP DAILY [facility] Last Admin: 11/23/18 09:22 Dose: 40 mg Pneumococcal Polyvalent Vaccine (Pneumovax 23 Vaccine) 0.5 ml IM .ONCE ONE Stop: 11/24/18 10:01 - Labs Labs: 11/23/18 08:00 11/23/18 08:00 PT 14.9 SECONDS (9.7-12.2) H 11/22/18 05:09 INR 1.4 11/22/18 05:09 APTT 32.6 SECONDS (21-34) 11/22/18 05:09 - Constitutional Appears: Non-toxic, No Acute Distress - Head Exam Head Exam: NORMAL INSPECTION - Eye Exam Eye Exam: Normal appearance - ENT Exam ENT Exam: Mucous Membranes Moist - Respiratory Exam Respiratory Exam: NORMAL BREATHING PATTERN. absent: Accessory Muscle Use, Respiratory Distress - Cardiovascular Exam Cardiovascular Exam: absent: Bradycardia, Tachycardia - GI/Abdominal Exam GI & Abdominal Exam: Soft, Tenderness (appropriate periumbilical TTP). absent: Distended, Firm, Guarding Additional comments: incisions c/d/i - Extremities Exam Extremities Exam: Normal Inspection - Neurological Exam Neurological Exam: Alert, Awake, Oriented x3 - Psychiatric Exam Psychiatric exam: Normal Affect, Normal Mood - Skin Skin Exam: Dry, Intact, Normal Color, Warm Assessment and Plan - Assessment and Plan (Free Text) Assessment: 52 y/o F POD#1 s/p laparoscopic cholecystectomy Plan: - pt cleared for discharge from surgical standpoint - pt should f/u in office as directed on post-op instructions - take all medication as prescribed - encourage Ambulation/IS use Pt discussed w/ Dr. Pasquale Stein PGY3 <Alexis Giordano - Last Filed: 11/24/18 11:21> Objective - Vital Signs/Intake and Output Vital Signs (last 24 hours): Temp Pulse Resp BP Pulse Ox 98.7 F 74 20 101/62 96 11/23/18 08:14 11/23/18 08:14 11/23/18 08:14 11/23/18 08:14 11/23/18 08:14 - Labs Labs: 11/23/18 08:00 11/23/18 08:00 PT 14.9 SECONDS (9.7-12.2) H 11/22/18 05:09 INR 1.4 11/22/18 05:09 APTT 32.6 SECONDS (21-34) 11/22/18 05:09 Assessment and Plan - Assessment and Plan (Free Text) Plan: Patient seen and examined independent of resident staff. Agree with above assessment and plan. POD1 s/p lap chuy for acute cholecystitis. TOlerating t. Pain controlled. Labs downtrending to normal. Ok for discharge home. Follow up in 3-4 weeks for post op visit. Office information provided.
--- NOTE | 2018-11-23 11:57 | CP.PCM.DIS ---
Provider - Provider Date of Admission: 11/21/18 15:00 Attending physician: Patsy Daugherty MD Consults: 11/21/18 17:43 General Surgery Consult Routine Comment: Consulting Provider: Alexis Giordano Consulting Physician: Alexis Giordano Reason for Consult: acute chuy Time Spent in preparation of Discharge (in minutes): 40 Diagnosis - Discharge Diagnosis (1) Status post laparoscopic cholecystectomy Status: Chronic Hospital Course - Lab Results Lab Results: Micro Results 11/21/18 19:45 Blood-Venous Blood Culture - Preliminary NO GROWTH AFTER 24 HOURS 11/21/18 20:08 Blood-Venous Blood Culture - Preliminary NO GROWTH AFTER 24 HOURS Most Recent Lab Values WBC 12.6 K/uL (4.8-10.8) H 11/23/18 08:00 RBC 3.84 Mil/uL (3.80-5.20) 11/23/18 08:00 Hgb 11.6 g/dL (11.0-16.0) 11/23/18 08:00 Hct 33.8 % (34.0-47.0) L 11/23/18 08:00 MCV 88.1 fL (81.0-99.0) 11/23/18 08:00 MCH 30.3 pg (27.0-31.0) 11/23/18 08:00 MCHC 34.4 g/dL (33.0-37.0) 11/23/18 08:00 RDW 13.8 % (11.5-14.5) 11/23/18 08:00 Plt Count 236 K/uL (130-400) 11/23/18 08:00 MPV 8.5 fL (7.2-11.7) 11/23/18 08:00 Neut % (Auto) 81.1 % (50.0-75.0) H 11/23/18 08:00 Lymph % (Auto) 14.2 % (20.0-40.0) L 11/23/18 08:00 [place] % (Auto) 4.2 % (0.0-10.0) 11/23/18 08:00 Eos % (Auto) 0.1 % (0.0-4.0) 11/23/18 08:00 Baso % (Auto) 0.4 % (0.0-2.0) 11/23/18 08:00 Neut # (Auto) 10.2 K/uL (1.8-7.0) H 11/23/18 08:00 Lymph # (Auto) 1.8 K/uL (1.0-4.3) 11/23/18 08:00 [place] # (Auto) 0.5 K/uL (0.0-0.8) 11/23/18 08:00 Eos # (Auto) 0.0 K/uL (0.0-0.7) 11/23/18 08:00 Baso # (Auto) 0.1 K/uL (0.0-0.2) 11/23/18 08:00 PT 14.9 SECONDS (9.7-12.2) H 11/22/18 05:09 INR 1.4 11/22/18 05:09 APTT 32.6 SECONDS (21-34) 11/22/18 05:09 pO2 30 mm/Hg (30-55) 11/21/18 18:24 VBG pH 7.36 (7.32-7.43) 11/21/18 18:24 VBG pCO2 46 mmHg (40-60) 11/21/18 18:24 VBG HCO3 23.8 mmol/L 11/21/18 18:24 VBG Total CO2 27.4 mmol/L (22-28) 11/21/18 18:24 VBG O2 Sat (Calc) 61.5 % (40-65) 11/21/18 18:24 VBG Base Excess 0.1 mmol/L (0.0-2.0) 11/21/18 18:24 VBG Potassium 3.9 mmol/L (3.6-5.2) 11/21/18 18:24 Sodium 135.0 mmol/l (132-148) 11/21/18 18:24 Chloride 100.0 mmol/L (98-107) 11/21/18 18:24 Glucose 106 mg/dl (65-105) H 11/21/18 18:24 Lactate 3.5 mmol/L (0.7-2.1) H 11/21/18 18:24 Sodium 138 mmol/L (132-148) 11/23/18 08:00 Potassium 3.5 mmol/L (3.6-5.2) L 11/23/18 08:00 Chloride 106 mmol/L (98-107) 11/23/18 08:00 Carbon Dioxide 24 mmol/L (22-30) 11/23/18 08:00 Anion Gap 12 (10-20) 11/23/18 08:00 BUN 9 mg/dL (7-17) 11/23/18 08:00 Creatinine 0.6 mg/dL (0.7-1.2) L 11/23/18 08:00 Est GFR ( Amer) > 60 11/23/18 08:00 Est GFR (Non-Af Amer) > 60 11/23/18 08:00 Random Glucose 119 mg/dL (65-105) H 11/23/18 08:00 Hemoglobin A1c 6.0 % (4.2-6.5) 11/22/18 05:09 Lactic Acid 1.1 mmol/L (0.7-2.1) 11/21/18 22:32 Calcium 8.2 mg/dl (8.6-10.4) L 11/23/18 08:00 Phosphorus 1.9 mg/dL (2.5-4.5) L 11/23/18 08:00 Magnesium 2.0 mg/dL (1.6-2.3) 11/23/18 08:00 Total Bilirubin 1.0 mg/dL (0.2-1.3) 11/23/18 08:00 AST 35 U/L (14-36) 11/23/18 08:00 ALT 57 U/L (9-52) H 11/23/18 08:00 Alkaline Phosphatase 75 U/L (38-126) 11/23/18 08:00 Total Creatine Kinase 122 U/L (30-135) 11/23/18 08:00 CK-MB (Mass) 0.32 ng/mL (0.0-3.38) 11/23/18 08:00 Troponin I < 0.0120 ng/mL (0.00-0.120) 11/23/18 08:00 Total Protein 5.8 g/dL (6.3-8.3) L 11/23/18 08:00 Albumin 3.2 g/dL (3.5-5.0) L 11/23/18 08:00 Globulin 2.7 gm/dL (2.2-3.9) 11/23/18 08:00 Albumin/Globulin Ratio 1.2 (1.0-2.1) 11/23/18 08:00 Lipase 64 U/L (23-300) 11/21/18 09:36 Venous Blood Potassium 3.9 mmol/L (3.6-5.2) 11/21/18 18:24 Urine Color Yellow (YELLOW) 11/21/18 09:36 Urine Clarity Clear (Clear) 11/21/18 09:36 Urine pH 6.0 (5.0-8.0) 11/21/18 09:36 Ur Specific [place] 1.016 (1.003-1.030) 11/21/18 09:36 Urine Protein Negative mg/dL (NEGATIVE) 11/21/18 09:36 Urine Glucose (UA) Normal mg/dL (Normal) 11/21/18 09:36 Urine Ketones Negative mg/dL (NEGATIVE) 11/21/18 09:36 Urine Blood Negative (NEGATIVE) 11/21/18 09:36 Urine Nitrate Negative (NEGATIVE) 11/21/18 09:36 Urine Bilirubin Negative (NEGATIVE) 11/21/18 09:36 Urine Urobilinogen Normal mg/dL (0.2-1.0) 11/21/18 09:36 Ur Leukocyte Esterase Neg [place]/uL (Negative) 11/21/18 09:36 Urine WBC (Auto) < 1 /hpf (0-5) 11/21/18 09:36 Urine RBC (Auto) < 1 /hpf (0-3) 11/21/18 09:36 Ur Squamous Epith Cells < 1 /hpf (0-5) 11/21/18 09:36 Urine Bacteria Rare (<OCC) 11/21/18 09:36 Blood Type O POSITIVE 11/22/18 05:09 Antibody Screen Negative 11/22/18 05:09 - Hospital Course Hospital Course: On admission: Patient is a 52 year old female, with PMHx of gastritis, presents to the ED c/o abdominal pain. Reports that pain began around midnight last night while she was trying to go to sleep. Describes pain as "sharp, stabbing" in nature, located in epigastric/RUQ region. Rates pain as "10/10 in severity." Pain associated with "11 episodes" of non-bloody, non-bilious vomiting last night. Patient does not remember if it is worse with food or not. She states she has had this pain in the past, approximately the past year, but never this bad before. Each time the pain eventually resolves "on its own." Patient denies subjective fever, chills, headache, chest pain, shortness of breath, dysuria, constipation, diarrhea, or blood in stool. Hospital course: Patient was admitted for acute cholecystitis for which she had laparoscopic cholecystectomy on 11/22/18. Initial lactic acid on VBG was 3.5, repeat was 1.1. Patient was treated with Zosyn and Flagyl during hospitalization. She remained afebrile with blood cultures negative for 48 hours. Patient was passing flatus, tolerating diet prior to discharge home. Patient was provided with detailed instructions on follow up with Dr. Alexis Giordano. Patient was deemed stable to discharge as per Dr. Daugherty. Imaging: ABD US (11/21/18): Cholelithiasis w mild GB wall thickening measuring up to 3.4 mm, as well as GB edema and pericholecystic fluid. Negative sono smith sign. Hepatomegaly with increased echogenicity of hepatic parenchymal disease vs fatty infiltration. Within liver, 2.4 x 1.5 x 2.1 cm hypoechoic foci near GB fossa which may represent focal fatty sparing - underlying lesion cannot be excluded. Mild prominence of CBD (up to 5.7 mm). 1.4 cm of right renal cyst. Liver multi-phase CT 11/21/18 Hepatic steatosis with areas of focal fatty sparing. No discrete hepatic mass. Distended gallbladder with wall thickening/edema as seen on ultrasound. Left adnexal 6.9 cm cystic structure. Pelvic US can be obtained for further characterization as clinically warranted. Discharge instructions: Follow up with Surgery Dr. Alexis Giordano by calling to make an appointment in 2 weeks at [phone] for follow up appoinemnt at [address] [place] [address]. You may follow up with [facility] for regular primary care in 2 weeks. You may take Ibuprofen 400mg over the counter for your pain. You do not need any prescriptions at this time. You may shower 36 hours after surgery, no soaking of incisions No heavy lifting for 4 weeks. You may return to work right away. Discharge instructions: You have had a procedure known as a laparoscopic cholecystectomy, which is a procedure to removal your gallbladder. After surgery No alcohol for 24 hours or while taking pain medication. Do not make any personal or business decisions for 24 hours after surgery. Plan for a friend/family member to take you home. What to expect You may have a sore throat, right shoulder discomfort, chest tightness for 24 to 48 hours after surgery, which will go away gradually. It is caused by carbon dioxide used to inflate your abdomen during the procedures. Soreness in the abdominal area - this ache will gradually go away within a few days. Your abdomen may be distended for a few days after surgery. Diet Maintain a low fat diet for 4 weeks after surgery. No fatty or heavy foods, especially fried or greasy food since these foods causes diarrhea or nausea temporarily after surgery. Drink 8 large glasses of water daily. Eat lot of whole grains, fruits and green leafy vegetables. Some patients find that their appetite is poor for a week or two after surgery. This ia normal result of the stress of surgery - your appetite should return in time. If you find that you are persistently nauseated or unable to take in liquids, contact our office and let us knonw. Medications: You may take Ibuprofen 400mg-600mg every 4 to 6 hours regularly for the first 3 days, to help with pain and swelling. You may also taken Tylenol 650mg as needed for pain. Showering: You may shower 36 hours after surgery. You can apply soap and water above your incisions but do not scrub directly over your incisions. Gently pat-dry wound area with soft clean towel. Wound care Your incisions have been closed with dissolvable suture on the inside and special skin glue over the incision. The skin glue will dissolve so don't remove it from skin. Do not expose your incision to soaking in waater like hot tubs, bathtubs or swimming pools for 6 weeks after surgery. Do not put any ointments or cream over incisions for 6 weeks after surgery or while the incision is open, draining or scabbbed. Activity There are no medical restrictions on activity after surgery. TAke you pain medication as needed to stay active. Take short walks 2 to 3 times daily to help reduce the risk of blood clots after sugery. You may use the stairs as long as you don't feel dizzy or weak. Make sure you have someone around the first few times you use the stairs or exercise. No pushing, pulling or abdominal pressure for 4 weeks. NO HEAVY LIFTING MORE THAN 10 LBS for the first 3-4 weeks. You may also feeel easily fatigued or tired for a couple of weeks following surgery, this will improved over the next few weeks. Work You may return to work right away as tolerated. If you need documentation, please call the office at [phone]. Driving You may drive if you are not using narcotic pain medication for 2 days, can wear seatbelt comfortably and can drive your car. Typically, patients take 5 to 7days. Bowel movements The first bowel movement may occur anywhere from 1 to 5 days after surgery, as long as your are not nauseated or have abdominal pain, this variation is acceptable. Bowel function normalizes with time. When to call Call if you develop a fever >100.5, shaking, chills, bleeding or draining from incisions, redness, warmth or drainage from incision sites, yellowing of skin or eyes, dark urine, light stools or kitty colored stools, persistent nausea or vomiting, leg swelling or shortness of breath. Discharge Exam - Head Exam Head Exam: NORMAL INSPECTION - Eye Exam Eye Exam: EOMI, PERRL - ENT Exam ENT Exam: Mucous Membranes Moist - Neck Exam Neck exam: Full Rom - Respiratory Exam Respiratory Exam: Clear to PA & Lateral, NORMAL BREATHING PATTERN. absent: Rales, Rhonchi, Wheezes - Cardiovascular Exam Cardiovascular Exam: REGULAR RHYTHM, +S1, +S2. absent: Gallop, Rubs - GI/Abdominal Exam GI & Abdominal Exam: Normal Bowel Sounds, Soft. absent: Distended, Firm, Guarding, Tenderness Additional comments: 4 incision sites, clean, dry, intact with dermabond in place - Extremities Exam Extremities exam: pedal pulses present Additional comments: no calf tenderness, no pedal edema - Neurological Exam Neurological exam: Alert, Oriented x3 - Psychiatric Exam Psychiatric exam: Normal Affect, Normal Mood - Skin Skin Exam: Dry, Intact, Warm Additional comments: Incision sites on abdomen Discharge Plan - Follow Up Plan Condition: IMPROVED Disposition: HOME/ ROUTINE Instructions: Cholecystitis (DC), Cholecystitis (GEN), Acute Abdominal Pain (DC) Additional Instructions: Follow up with Surgery Dr. Alexis Giordano by calling to make an appointment in 2 weeks at [phone] for follow up appoinemnt at [address] [place] [address]. You may follow up with [facility] for regular primary care in 2 weeks. You may take Ibuprofen 400mg over the counter for your pain. You do not need any prescriptions at this time. You may shower 36 hours after surgery, no soaking of incisions No heavy lifting for 4 weeks. You may return to work right away. Discharge instructions: You have had a procedure known as a laparoscopic cholecystectomy, which is a procedure to removal your gallbladder. After surgery No alcohol for 24 hours or while taking pain medication. Do not make any personal or business decisions for 24 hours after surgery. Plan for a friend/family member to take you home. What to expect You may have a sore throat, right shoulder discomfort, chest tightness for 24 to 48 hours after surgery, which will go away gradually. It is caused by carbon dioxide used to inflate your abdomen during the procedures. Soreness in the abdominal area - this ache will gradually go away within a few days. Your abdomen may be distended for a few days after surgery. Diet Maintain a low fat diet for 4 weeks after surgery. No fatty or heavy foods, especially fried or greasy food since these foods causes diarrhea or nausea temporarily after surgery. Drink 8 large glasses of water daily. Eat lot of whole grains, fruits and green leafy vegetables. Some patients find that their appetite is poor for a week or two after surgery. This ia normal result of the stress of surgery - your appetite should return in time. If you find that you are persistently nauseated or unable to take in liquids, contact our office and let us knonw. Medications: You may take Ibuprofen 400mg-600mg every 4 to 6 hours regularly for the first 3 days, to help with pain and swelling. You may also taken Tylenol 650mg as needed for pain. Showering: You may shower 36 hours after surgery. You can apply soap and water above your incisions but do not scrub directly over your incisions. Gently pat-dry wound area with soft clean towel. Wound care Your incisions have been closed with dissolvable suture on the inside and special skin glue over the incision. The skin glue will dissolve so don't remove it from skin. Do not expose your incision to soaking in waater like hot tubs, bathtubs or swimming pools for 6 weeks after surgery. Do not put any ointments or cream over incisions for 6 weeks after surgery or while the incision is open, draining or scabbbed. Activity There are no medical restrictions on activity after surgery. TAke you pain medication as needed to stay active. Take short walks 2 to 3 times daily to help reduce the risk of blood clots after sugery. You may use the stairs as long as you don't feel dizzy or weak. Make sure you have someone around the first few times you use the stairs or exercise. No pushing, pulling or abdominal pressure for 4 weeks. NO HEAVY LIFTING MORE THAN 10 LBS for the first 3-4 weeks. You may also feeel easily fatigued or tired for a couple of weeks following surgery, this will improved over the next few weeks. Work You may return to work right away as tolerated. If you need documentation, please call the office at [phone]. Driving You may drive if you are not using narcotic pain medication for 2 days, can wear seatbelt comfortably and can drive your car. Typically, patients take 5 to 7days. Bowel movements The first bowel movement may occur anywhere from 1 to 5 days after surgery, as long as your are not nauseated or have abdominal pain, this variation is acceptable. Bowel function normalizes with time. When to call Call if you develop a fever >100.5, shaking, chills, bleeding or draining from incisions, redness, warmth or drainage from incision sites, yellowing of skin or eyes, dark urine, light stools or kitty colored stools, persistent nausea or vomiting, leg swelling or shortness of breath. Referrals: [facility] [Outside] Alexis Giordano MD [Staff Provider] -
[2018-11-24] MEDS ORDERED: Pneumococcal 23-Valent Vaccine IM ONE (10:00)
== END 2018-11-23 14:26 | disposition home or self-care (01) | DRG 263 ==
LOC: C.ER 08:26 → C.9E 15:00 → C.3T 15:57
PROVIDERS: ADMIT Internal Medicine; ATTEND Internal Medicine
PROC: 0FT44ZZ Resection of Gallbladder, Percutaneous Endoscopic Approach (ICD-10-PCS; principal; 2018-11-22 07:45)
DX: K80.00 Calculus of gallbladder with acute cholecystitis without obstruction (principal); K76.0 Fatty (change of) liver, not elsewhere classified; E66.01 Morbid (severe) obesity due to excess calories; N28.1 Cyst of kidney, acquired; K29.70 Gastritis, unspecified, without bleeding; Z68.35 Body mass index [BMI] 35.0-35.9, adult